=== PATIENT | male | born 1945 | race Caucasian/White ===

== ENCOUNTER 2020-03-10 21:01 | Inpatient (IN) | payer MEDICAID ==
[~2020-03-10] VITALS: Ht 162.6 cm; Wt 123.8 kg
[2020-03-11] MEDS ORDERED: NITROGLYCERIN OINT 1GM/INCH UDPKT TD ONE (02:00)
[2020-03-11] MEDS ORDERED: ASPIRIN 81MG TABLET PO ONE (02:00)
[2020-03-11 02:21] LABS: EOSINOPHILS % 4.3 % (0.0-5.0); HEMOGLOBIN. 12.8 g/dL (14.0-18.0); LYMPHOCYTES % 27.6 % (20.0-50.0); MEAN CORPUSCULAR HEMOGLOBIN 31.8 pg (28.0-32.0); MEAN CORPUSCULAR VOLUME 94.5 fL (80.0-94.0); MEAN PLATELET VOLUME 7.1 fl (7.4-10.4); MONOCYTES % 7.3 % (2.0-8.0); NEUTROPHILS % 59.8 % (40.0-76.0); PLATELET 242 x1000/uL (130-400); RED BLOOD CELL COUNT 4.02 mill/uL (4.7-6.1); RED CELL DISTRIBUTION WIDTH 15.1 % (11.6-14.6)
[2020-03-11 02:23] LABS: CHLORIDE 116 mEq/L (98-107)
[2020-03-11 10:30] VITALS: BP 136/70
[2020-03-11 12:00] VITALS: BP 164/85
[2020-03-11] MEDS ORDERED: DOCUSATE SODIUM 100MG CAPSULE PO PRN (15:30)
[2020-03-11] MEDS ORDERED: CLONIDINE 0.1MG TABLET PO PRN (15:30)
[2020-03-11] MEDS ORDERED: ONDANSETRON HCL 4MG/2ML INJ IV PRN (15:30)
[2020-03-11] MEDS ORDERED: MORPHINE SULFATE 2 MG/ML CPJ (NOT FOR IM USE) IV PRN (15:30)
[2020-03-11] MEDS ORDERED: IPRATROPIUM/ALBUTEROL 0.5-3(2.5)MG/3ML NEB HHN PRN (15:30)
[2020-03-11] MEDS ORDERED: LORAZEPAM 0.5MG TABLET PO PRN (15:30)
[2020-03-11] MEDS ORDERED: ACETAMINOPHEN 325MG TABLET PO PRN (15:30)
[2020-03-11] MEDS ORDERED: HYDROCODONE/ACETAMINOPHEN 5/325MG TABLET PO PRN (15:30)
[2020-03-11 16:00] VITALS: BP 156/85
[2020-03-11] MEDS: AMLODIPINE 5MG TABLET PO SCH ×2 (16:41→21:20)
[2020-03-11] MEDS: ASPIRIN 81MG EC TABLET PO SCH (16:41)
[2020-03-11] MEDS: NITROGLYCERIN OINT 1GM/INCH UDPKT TD SCH ×2 (17:34→21:20)
[2020-03-11 18:45] LABS: FOLIC ACID (FOLATE) SERUM > 20.00 ng/mL (>5.38)
[2020-03-11 18:52] LABS: VITAMIN B12 SERUM 367 pg/mL (211-911)
[2020-03-11 19:05] LABS: *AMPHETAMINES SCREEN URINE NEGATIVE (NEGATIVE); *BARBITURATES SCREEN URINE NEGATIVE (NEGATIVE); *BENZODIAZEPINES SCREEN URINE NEGATIVE (NEGATIVE)
[2020-03-11 19:06] LABS: *COCAINE SCREEN URINE NEGATIVE (NEGATIVE); CANNABINOID URINE SCREEN NEGATIVE (NEGATIVE); METHADONE URINE SCREEN NEGATIVE (NEGATIVE); OPIATES URINE SCREEN NEGATIVE (NEGATIVE); PHENCYCLIDINE URINE SCREEN NEGATIVE (NEGATIVE)
[2020-03-11 19:12] LABS: FERRITIN 55 ng/mL (22-322)
[2020-03-11 20:00] VITALS: BP 122/82
[2020-03-11] MEDS ORDERED: ATORVASTATIN CALCIUM 10MG TABLET PO SCH (21:00)
[2020-03-11] MEDS: ENOXAPARIN 30MG/0.3ML SYR SUBCUT SCH (21:18)
[2020-03-12] VITALS: BP 122/90
[2020-03-12 04:00] VITALS: BP 132/73
[2020-03-12] MEDS: NITROGLYCERIN OINT 1GM/INCH UDPKT TD SCH ×2 (05:40→14:00)
[2020-03-12 08:00] VITALS: BP 149/82
[2020-03-12] MEDS: ASPIRIN 81MG EC TABLET PO SCH (08:02)
[2020-03-12] MEDS: AMLODIPINE 5MG TABLET PO SCH (08:03)
[2020-03-12] MEDS: ENOXAPARIN 30MG/0.3ML SYR SUBCUT SCH (08:03)
[2020-03-12] MEDS ORDERED: ASPI-1158 PO (11:49)
[2020-03-12] MEDS ORDERED: ATOR10TA PO (11:49)
[2020-03-12] MEDS ORDERED: AMLO5TAB88 PO (11:49)
[2020-03-12 12:00] VITALS: BP 137/74
[2020-03-12 12:59] LABS: BASOPHILS % 0.9 % (0.0-2.0); EOSINOPHILS % 2.5 % (0.0-5.0); HEMATOCRIT. 36.8 % (42.0-52.0); HEMOGLOBIN. 12.4 g/dL (14.0-18.0); LYMPHOCYTES % 18.9 % (20.0-50.0); MEAN CORPUSCULAR HEMOGLOBIN 31.8 pg (28.0-32.0); MEAN CORPUSCULAR VOLUME 94.2 fL (80.0-94.0); MEAN PLATELET VOLUME 7.2 fl (7.4-10.4); MONOCYTES % 6.4 % (2.0-8.0); NEUTROPHILS % 71.3 % (40.0-76.0); PLATELET 260 x1000/uL (130-400); RED BLOOD CELL COUNT 3.91 mill/uL (4.7-6.1); RED CELL DISTRIBUTION WIDTH 15.2 % (11.6-14.6)
[2020-03-12 13:10] LABS: CHLORIDE 111 mEq/L (98-107)
[2020-03-12 16:00] VITALS: BP 140/81
[2020-03-12 16:17] VITALS: BP 140/81
== END 2020-03-12 17:30 | disposition home or self-care (01) | DRG 199 ==
LOC: ER 21:01 → 5EST 03-11 04:49 → ENRESERV 03-11 09:53
PROVIDERS: ADMIT Internal Medicine; ATTEND Internal Medicine
DX: I16.1 Hypertensive emergency (principal); I24.8 Other forms of acute ischemic heart disease; D53.9 Nutritional anemia, unspecified; E66.9 Obesity, unspecified; E78.00 Pure hypercholesterolemia, unspecified; E78.5 Hyperlipidemia, unspecified; R00.1 Bradycardia, unspecified; I10 Essential (primary) hypertension; M19.90 Unspecified osteoarthritis, unspecified site; I45.10 Unspecified right bundle-branch block; Z79.82 Long term (current) use of aspirin; Z79.899 Other long term (current) drug therapy; Z68.42 Body mass index [BMI] 45.0-49.9, adult; Z82.3 Family history of stroke; Z82.49 Family history of ischemic heart disease and other diseases of the circulatory system
CPT/HCPCS: 36415; 71045; 80048; 80053; 80061; 80305; 82607; 82728; 82746; 83036; 83540; 83550; 83880; 84484; 85025; 85379; 93005; 93306; 99285; J1650; J2270

== ENCOUNTER 2020-03-13 14:32 | Emergency (ER) | payer MEDICAID ==
[~2020-03-13] VITALS: Ht 165.1 cm; Wt 90.0 kg
[~2020-03-13 14:32] MED LIST: AMLO5TAB88 PO; ASPI-1158 PO; ATOR10TA PO
[2020-03-13] MEDS ORDERED: SODIUM CHLORIDE 0.9% 1,000 ML IV ONE (16:27)
[2020-03-13] MEDS ORDERED: KETOROLAC 30MG/ML VIAL IV STA (16:27)
[2020-03-13 17:16] LABS: BASOPHILS % 0.5 % (0.0-2.0); EOSINOPHILS % 0.6 % (0.0-5.0); HEMATOCRIT. 36.2 % (42.0-52.0); HEMOGLOBIN. 12.5 g/dL (14.0-18.0); LYMPHOCYTES % 16.6 % (20.0-50.0); MEAN CORPUSCULAR HEMOGLOBIN 32.5 pg (28.0-32.0); MEAN PLATELET VOLUME 7.5 fl (7.4-10.4); MONOCYTES % 8.4 % (2.0-8.0); NEUTROPHILS % 73.9 % (40.0-76.0); PLATELET 244 x1000/uL (130-400); RED BLOOD CELL COUNT 3.85 mill/uL (4.7-6.1); RED CELL DISTRIBUTION WIDTH 15.2 % (11.6-14.6)
[2020-03-13 17:19] LABS: CHLORIDE 110 mEq/L (98-107)
[2020-03-13 17:21] LABS: PROTHROMBIN TIME 10.5 sec (9.6-11.0)
[2020-03-13 19:07] VITALS: BP 109/71
== END 2020-03-13 19:08 | disposition home or self-care (01) ==
LOC: ER 14:32 → CANBEDREQ 19:57
DX: M25.562 Pain in left knee (principal); B34.9 Viral infection, unspecified; I10 Essential (primary) hypertension; E78.00 Pure hypercholesterolemia, unspecified; M19.90 Unspecified osteoarthritis, unspecified site; Z79.82 Long term (current) use of aspirin
CPT/HCPCS: 36415; 71045; 73560; 80053; 83605; 84145; 85025; 85610; 87040; 93005; 96374; 99285; J1885; J7030